=== PATIENT | male | born 1955 | race Caucasian/White ===

== ENCOUNTER → 2018-04-13 | Outpatient (CLI) | payer BC, OTHER ==
[~2018-04-13] VITALS: Ht 188 cm; Wt 154.2 kg
[~2018-04-13] MED LIST: ALEVE220 MG PO; ASPIRIN325 PO; CARDIZEM CD240 MG PO; FISH OIL 1,001000 M2 PO; FLEXERIL PO; IRON325 PO; KLOR-CON 1010 MEQ PO; LASIX 40 MG TAB40 M2 PO; NUCYNTA50 MG PO; PACERONE 200 M200 M1 PO; ROBAXIN 750 MG750 M1 PO; ROPINIROLE HCL2 MG PO; SIMVASTATIN10 MG PO; STOOL SOFTENER100 M1 PO; TRAMADOL 50 MG50 MG PO
--- NOTE | ~2018-04-13 | HPC ---
[facility] [place] [address] PAIN MANAGEMENT CONSULTATION Name: RICKY OCONNOR [id number] Admission: 04/13/18 Attend Phys: Demetrio Reardon MD Discharge: Date of : 51 Report #: [id number] THIS REPORT FOR: //name// CC: Dr. Nallely Browning DATE OF SERVICE: 04/13/2018 CHIEF COMPLAINT: Pain in the right hip radiating into the anterolateral thigh. The patient is the father of my patient, Shobha Oconnor who is here today to discuss his ongoing and rapidly accelerating pain in the right hip. 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. He is currently working full-time, although watching him walk, you wonder how. He complains of a continuous sharp pain, 8/10 that is worsened with all weightbearing activities. He is able to get away from his pain and he gets some relief with sitting or lying down. He did see an orthopedic surgeon who assessed him and felt that he was not an operative candidate for a severely arthritic right hip and provided a hip injection. It was temporarily helpful. He saw Dr. Cristian Mcmanus who also agreed that his pain was generated in several locations including the primary osteoarthritis of his right hip, but noted also that he had significant degenerative changes of the lumbar spine resulting in facet arthropathy and chronic right-sided low back pain with possible radicular mechanisms. MEDICATIONS: Fish oil, aspirin, iron, Aleve 220 mg 2 tablets 4 times daily, stool softeners, Centrum Silver, potassium, ropinirole, Cartia XT, simvastatin, Lasix, amiodarone, methocarbamol 750 one daily. He is not on a blood thinner. ALLERGIES: None. PAST MEDICAL HISTORY: He has intermittent atrial fibrillation. He reports that he has had 5 ablation procedures, which have not been completely effective. His barrel rifler button is Dr. Kam Quiñonez. He was anticoagulated until it was discovered that he had anemia related to GI bleeding. Multiple tests performed without ability to identify a source. He was taken off his anticoagulant and his hemoglobin has apparently been turned to a more normal level. He is morbidly obese. He suffers from a large abdominal hernia. 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 He is with a supportive who attends this appointment with him today. He denies use of tobacco or alcohol. He is at low risk for any addiction according to the opioid risk tool. [address] [address] PAIN MANAGEMENT CONSULTATION Name: RICKY OCONNOR [facility] [id number] Admission: 04/13/18 Attend Phys: Demetrio Reardon MD Discharge: Date of : 51 Report #: [id number] PHYSICAL EXAMINATION: GENERAL: He is a pleasant, outgoing gentleman. VITAL SIGNS: Blood pressure is 161/87, heart rate 64, respirations 18, O2 sat is 97% on room air. Pain intensity 8/10. His BMI is 43.6. HEENT: Normal. NECK: Supple. CHEST: Clear with no audible wheezing. CARDIAC: Rhythm today is regular. I did not appreciate any irregularities. He is not in atrial fibrillation today. ABDOMEN: He has a large panniculus and abdomen is protuberant with a right paraumbilical hernia. BACK: Examination of the spine reveals localized tenderness, pain with forward flexion and extension, both about equal. EXTREMITIES: Examination of the lower extremities demonstrates marked pain with straight leg raising. MUSCULOSKELETAL: Points to the hip as the primary pain generator. Pain develops with just 15-20 degrees of leg elevation off of the bed. Internal and external rotation of the hip both causes significant pain laterally along the trochanter and anterior along the anterior thigh. Sensation is intact. He has generalized weakness in the lower extremities. Left leg straight leg raising is negative to 30 degrees restricted by hamstring tightness. No pain with internal and external rotation. X-rays are not available, although I did use spot films in the procedure room today to identify a severely arthritic [id number] right hip. IMPRESSION: 1. Severe right hip pain. I think the primary pain generator here is his osteoarthritic hip by physical exam. 2. It is highly likely that he has some degree of facet arthropathy resulting in back pain and I would not also be surprised if some of his pain was radicular in nature. 3. Morbid obesity. 4. Atrial fibrillation, intermittent, now off of anticoagulation. He is on long-term antiarrhythmic therapy with amiodarone. 5. Gastrointestinal bleed of unknown origin per the patient. RECOMMENDATIONS: He has already had one hip injection with modest improvement. I have offered another for symptomatic relief, but I have no illusion that this will provide more than some temporary relief. If fortunate, it may provide him with a few months of relief and he can have intermittent injections until his correction. 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 I would think looking at his hip and the amount of pain that he has related to it that he would benefit from hip replacement, but he is certainly from a [facility] [address] [place] [address] PAIN MANAGEMENT CONSULTATION Name: RICKY OCONNOR Room #: REG [facility]#: [id number] Admission: 04/13/18 Attend Phys: Demetrio Reardon MD Discharge: Date of : 51 Report #: [id number] medical standpoint a surgical risk. Epidural injection was considered and even suggested by Dr. Mcmanus. My belief is that with a degree of degeneration in his right hip that the epidural injection is unlikely to provide relief of any significant nature for the radicular component. We discussed medication. He takes tramadol currently on a p.r.n. basis. It makes him drowsy, so he only uses it on his days off. Hydrocodone causes dizziness and activation. He does not favor it. We talked about perhaps a trial of Butrans patches, which have a lower side effect profile, but there is an interaction with his antiarrhythmic medications and given his risk of stroke with intermittent atrial fibrillation off anticoagulation, I am reluctant to start him on buprenorphine. Recommended injection and I would like to see him back in the pain clinic in 1 month. May consider initiating low dose fentanyl patch. PROCEDURE: Right hip injection for diagnostic and therapeutic purposes under fluoroscopic guidance. He was placed supine, skin prepped with ChloraPrep. Skin anesthetized over the right hip joint. A 6-inch Chiba needle was then advanced to the femoral neck. I injected 0.5 mL of Omnipaque to demonstrate an arthrogram and followed with 3 mL of 0.5% bupivacaine mixed with 40 mg of triamcinolone. He tolerated the procedure well. Pain was slightly reduced at discharge. Followup visit planned in 1 month to discuss further options. <ELECTRONICALLY SIGNED> By: Demetrio Reardon MD 04/17/18 1711 [id number] Demetrio Reardon MD /nt
[2018-04-13 13:12] VITALS: BP 161/87
== END | disposition home or self-care (01) ==
LOC: EDSEX 07:19 → PAIN 07:19
DX: M16.11 Unilateral primary osteoarthritis, right hip (principal); M54.5 Low back pain; I48.91 Unspecified atrial fibrillation; E66.01 Morbid (severe) obesity due to excess calories; Z79.899 Other long term (current) drug therapy; Z79.01 Long term (current) use of anticoagulants; Z68.41 Body mass index [BMI] 40.0-44.9, adult; Z98.890 Other specified postprocedural states; Z87.19 Personal history of other diseases of the digestive system; Z79.82 Long term (current) use of aspirin

== ENCOUNTER → 2018-05-04 | Outpatient (CLI) | payer BC, OTHER ==
[~2018-05-04] VITALS: Ht 188 cm; Wt 156.7 kg
--- NOTE | ~2018-05-04 | HPC ---
[facility] [place] [address] [address] PAIN MANAGEMENT CONSULTATION Name: RICKY JEAN Room #: REG [facility].#: [id number] Admission: 05/04/18 Attend Phys: Demetrio Reardon MD Discharge: Date of : 51 Report #: [id number] THIS REPORT FOR: //name// CC: Demetrio Browning DATE OF SERVICE: 05/04/2018 Followup visit for severe osteoarthritis, right hip. The patient returns to the Pain Clinic today and had only short-term relief from his hip injection. It did provide enough relief that it was diagnostic. I believe his pain is not spondylitic and is not coming from his spine. I believe it is coming from his right hip. I have reviewed x-rays from [facility] to confirm severe osteoarthritis. Recommended that he try a new medication Nucynta. He has had trials with tramadol, hydrocodone, oxycodone, all of which keep him up at night. He does not like the way they make him feel. We will see how he does with this medication, which works on both the norepinephrine receptor as well as the opioid receptor. He has in atrial fibrillation and has reported some unusual symptoms while at work. He was blowing into a straw and felt dizzy and lightheaded. He said he had some visual changes. I have asked him to consult with his primary care physician. I am not sure what the next steps might be if he cannot take an anticoagulant, but he clearly is at risk for CVA. His GI bleeding was outlined at last visit. IMPRESSION: Osteoarthritis, right hip. PLAN: Medication trial for 1 week. He will call and let us know how he tolerates the Nucynta for pain relief. By: [id number] Demetrio Reardon MD /nt
[2018-05-04 14:22] VITALS: BP 128/77
== END ==
LOC: PAIN 06:59
DX: M16.11 Unilateral primary osteoarthritis, right hip (principal); I48.91 Unspecified atrial fibrillation

== ENCOUNTER → 2018-07-06 | Outpatient (CLI) | payer BC, OTHER ==
[~2018-07-06] VITALS: Ht 188 cm; Wt 157.5 kg
[~2018-07-06] MED LIST changes: +NUCYNTA ER100 MG PO
--- NOTE | ~2018-07-06 | HPC ---
[facility] [place] [address] PAIN MANAGEMENT CONSULTATION Name: RICKY JEAN Room #: REG [facility] MMegan.#: [id number] Admission: 07/06/18 Attend Phys: Demetrio Reardon MD Discharge: Date of : 51 Report #: [id number] THIS REPORT FOR: //name// CC: Demetrio Browning MD DATE OF SERVICE: 07/06/2018 Followup visit for severe pain in the right lower back radiating to the right leg including extension into the calf and foot. The patient returns to pain clinic today for an epidural steroid injection. There is no question that he has multiple pain generators. He has a very severe right hip osteoarthritis, which is evident in his physical exam. X-rays performed on 03/14/2018 demonstrate these changes and he received some temporary dramatic relief from injection of the right hip. His arthritis is severe enough that the injection did not provide relief for long and it only provided a portion of the relief of the pain in the groin and radiating into his buttock. He has a second pain generator in his spine with an anterolisthesis of L5 on S1 that shows motion in flexion and extension. This causes some impingement upon the L5 nerve root, which is consistent with the pain that radiates down the posterior aspect of his leg. Dr. Mcmanus has noted as well that he has multilevel degenerative disk disease and severe lumbar facet arthritis throughout. I would not be surprised to see that he has pain generated through his facet joints as well with facet arthropathy. I am concerned about his obesity and his comorbidities of congestive heart failure and he has a growing abdominal ventral hernia that was quite prominent today. He has grade 4 bilateral lower extremity pitting edema. Notable weakness throughout the back and lower extremities is noted. His pain is of severe level of 10/10 with sitting and walking. He is here today for injection with hopes that he can provide some relief for mobilization. We discussed his multiple pain generators and the likelihood that an epidural injection will treat only the radicular component of pain with perhaps some benefits also for the axial back pain related to arthrosis. PQRS review shows that he is morbidly obese with a BMI of 44.6. He is not hypertensive, but has a history of heart disease. He is on amiodarone. He is a fall risk and needs help standing and walking with a cane or walker. He is currently not utilizing opioid medication. He has a history of osteoarthritis, particularly spondylosis of the spine and the severe osteoarthritis [place] [address] PAIN MANAGEMENT CONSULTATION Name: RICKY JEAN Room #: REG [facility] Cameron.#: [id number] Admission: 07/06/18 Attend Phys: Demetrio Reardon MD Discharge: Date of : 51 Report #: [id number] PHYSICAL EXAMINATION: VITAL SIGNS: Blood pressure 137/60, heart rate 93, respirations 20. IMPRESSION: 1. Chronic intractable pain with multiple pain generators, which include: 2. Osteoarthritis, right hip. 3. Lumbar spondylosis. 4. Spondylolisthesis L5-S1 with radiculopathy, right lower extremity. 5. Congestive heart failure with history of atrial fibrillation status post ablation. He is not anticoagulated. 6. Four plus bilateral lower extremity edema. 7. Large ventral abdominal hernia with increase over the course of the last 6 months. RECOMMENDATION: Epidural steroid injection L5-S1 under fluoroscopic guidance. Potential risks and benefits discussed. We are hopeful that this will provide some measure of relief for walking. PROCEDURE: The patient was taken to fluoroscopic suite, placed prone, skin prepped with ChloraPrep. Skin anesthetized over L5-S1 to the right of midline, 20-gauge Tuohy epidural needle advanced first attempt into the epidural space with loss of resistance. There was no blood or CSF aspirated. 1 mL of Omnipaque injected. Good spread of dye observed along the lateral recess. It was then followed by 3 mL of 0.5% lidocaine mixed with 80 mg triamcinolone. He tolerated the procedure well and was observed for 45 minutes and discharged. Followup visit is planned in 1-2 months. <ELECTRONICALLY SIGNED> By: Demetrio Reardon MD 07/10/18 1558 [id number] Demetrio Reardon MD /nt
[2018-07-06 13:11] VITALS: BP 137/60
== END | disposition home or self-care (01) ==
LOC: PAIN 07:06
DX: M47.26 Other spondylosis with radiculopathy, lumbar region (principal); G89.29 Other chronic pain; M43.16 Spondylolisthesis, lumbar region; M16.11 Unilateral primary osteoarthritis, right hip; I50.9 Heart failure, unspecified; I48.91 Unspecified atrial fibrillation; R60.9 Edema, unspecified; K43.9 Ventral hernia without obstruction or gangrene; Z98.890 Other specified postprocedural states; Z79.01 Long term (current) use of anticoagulants; Z79.899 Other long term (current) drug therapy; Z79.82 Long term (current) use of aspirin